=== PATIENT | male | born 1950 | race Caucasian/White ===

== ENCOUNTER 2020-10-17 08:37 | Outpatient (CLI) | payer MEDICARE, BC | END 2020-10-17 08:38 | disposition home or self-care (01) | LOC: CSHCT 08:37 | PROVIDERS: ATTEND Surgery | DX: L02.91 Cutaneous abscess, unspecified (principal); I61.9 Nontraumatic intracerebral hemorrhage, unspecified; I71.4 Abdominal aortic aneurysm, without rupture | CPT/HCPCS: 70450; 74174 ==

== ENCOUNTER 2020-11-29 13:11 | Outpatient (CLI) | payer MEDICARE, BC | END 2020-11-29 13:12 | disposition home or self-care (01) | LOC: CSHMRI 13:11 | PROVIDERS: ATTEND Physician Assistant | DX: I61.9 Nontraumatic intracerebral hemorrhage, unspecified (principal); I61.8 Other nontraumatic intracerebral hemorrhage | CPT/HCPCS: 70553 ==